=== PATIENT | male | born 1955 | race Caucasian/White ===

== ENCOUNTER → 2023-09-20 13:48 | Outpatient (REF) | payer OTHER, SELFPAY | LOC: HWRAD 13:48 | PROVIDERS: ATTENDING PHYSICIAN Urology; FAMILY PHYSICIAN Family Medicine; REFERRING PHYSICIAN Specialist | DX: C67.9 Malignant neoplasm of bladder, unspecified (principal) | CPT/HCPCS: 74178; Q9967 ==

== ENCOUNTER → 2023-09-24 10:07 | Outpatient (REF) | payer OTHER, SELFPAY | LOC: RAD 10:07 | PROVIDERS: ATTENDING PHYSICIAN Urology; FAMILY PHYSICIAN Family Medicine | DX: C67.9 Malignant neoplasm of bladder, unspecified (principal) | CPT/HCPCS: 78707; A9539 ==

== ENCOUNTER 2023-10-23 20:48 | Inpatient (IN) | payer OTHER, SELFPAY ==
[2023-10-23 15:23] VITALS: BP 119/63
--- NOTE | 2023-10-23 16:20 | ED.GENMED ---
History of Present Illness
General
Chief Complaint: Male Genito-Urinary Symptoms
Source: patient
Exam Limitations: none
Time Seen by Provider: 10/23/23 15:56
Nursing documentation reviewed up to this point in time: agreed with
Travel History
Have you had any contact with someone who has COVID-19?: No
Do you have any symptoms of coronavirus? Fever > 100 degrees, chills, cough, shortness of breath, sore throat, loss of taste or smell, muscle aches, or headache?: No
History of Present Illness
History of Present Illness:
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 Open to the emergency department today with
concerns of right-sided flank pain worsening over the past few days with associated hematuria over the past week and a half or so. Does have a history of kidney stones. Has had multiple procedures for tumors of his ureter. Has been taking Tylenol
at home without relief of symptoms. Denies chest pain shortness of breath fevers.
Review of Systems
Review of Systems
Allergies reviewed?: Yes
All Other Systems: ROS reviewed and negative except as documented in HPI and ROS
Phy Exam
Physical Exam
Physical Exam:
GENERAL: Alert , in no apparent distress
EYE: pupils equal and reactive
NECK: Supple, no significant adenopathy.
ENT: o/p clr, mmm.
CARDIAC: Regular rate and rhythm .
LUNGS: Clear breath sounds bilaterally, no acute respiratory distress, no wheezes/rales/rhonchi
ABDOMEN: Multiple scars to the abdomen but no focal tenderness soft, without focal tenderness, no r/g, no cvat
NEUROLOGICAL: Alert and oriented, no focal neuro deficits
SKIN: Warm and dry, skin intact.
MUSCULOSKELETAL: No edema, well perfused.
PSYCH: Normal and appropriate interaction.
Course
Orders/Labs/Results
Orders:
Orders
10/23/23 16:19
CT Abd/pel Without Iv Or Oral Urgent
Comment:
Reason For Exam: right flank pain hematuria, hx of colectomy, gastr
Ketorolac [Toradol] 15 mg IV NOW STA
10/23/23 16:29
Complete Blood Count/With Diff Urgent
Comprehensive Metabolic Panel Urgent
10/23/23 17:27
Urinalysis Reflex To Culture Urgent
Date Specimen was Collected: 10/23/23
Time Specimen was Collected: 17:25
Urine Microscopic Reflex Cult Urgent
Urine Culture Urgent
SELENA Source: U
Specimen Description:
Date Specimen was Collected: 10/23/23
Time Specimen was Collected: 17:25
10/23/23 19:38
CefTRIAXone [Rocephin] 2,000 mg IV NOW STA
Abnormal Lab Results
10/23/23 10/23/23
16:29 17:27
RBC 3.82 L 10^6/uL
(4.70-6.10)
Hgb 11.8 L g/dL
(13.0-18.0)
Hct 33.9 L %
(39.0-52.0)
Absolute Lymphs (auto) 0.4 L 10^3/uL
(1.2-3.4)
Neutrophils % 87.1 H %
(42.2-75.2)
Lymphocytes % 7.8 L %
(20.5-51.1)
Sodium 133 L mmol/L
(135-145)
BUN 25 H mg/dl
(9-20)
Glucose 150 H mg/dl
(70-99)
Urine Ketones 3+ A
(Negative)
Ur Occult Blood Reflex 4+ A
(Negative)
Urine Nitrite (Reflex) Positive A
(Negative)
Urine Bilirubin 1+ A
(Negative)
Leukocyte Esterase Rfl Trace A
(Negative)
Urine RBC >100 A /HPF
(0-2)
Urine Albumin (Reflex) 3+ A
(Neg - Trace)
10/23/23 16:29
10/23/23 16:29
Vital Signs
Initial and Last Documented VS:
Initial Vital Signs
Temp Pulse Resp BP Pulse Ox
97.6 F 63 18 119/63 99
10/23/23 15:23 10/23/23 15:23 10/23/23 15:23 10/23/23 15:23 10/23/23 15:23
Last Documented Vital Signs
Temp Pulse Resp BP Pulse Ox
97.6 F 63 18 119/63 99
10/23/23 15:23 10/23/23 15:23 10/23/23 15:23 10/23/23 15:23 10/23/23 15:23
MDM/Problems Addressed
MDM/Problems Addressed:
67-year-old male presenting to the emergency department today with concerns of hematuria over the past week and a half or so with associated right-sided flank pain worsening over the past few days. Does follow with Dr. Chai harris of history of
tumors previously on his ureter as well as kidney stones. Upon arrival here vital signs normal patient no obvious distress no reproducible pain plan for CT scan and labs and urine for further assessment. Urine potentially consistent with infection
with nitrites to many red blood cells for microscopy. CT scan is showing obstruction to the right ureter with hydronephrosis no calculus. Case discussed with neurology recommending admission for nephrostomy tube via IR and otherwise recommending
IV antibiotics due to concern for potential infection. Patient stable throughout ER stay
*Critical Care Note
Total Time (30-74mins, 75-104mins- exclusive of procedures): Not Applicable
ED Attending Note
-
Portions of this chart may have been created with voice recognition software.� Occasional wrong word or��sound alike� substitutions may have occurred due to the inherent limitations of voice recognition software.
Discharge Plan
Departure
Patient Disposition: Admit
Date of Disposition: 10/23/23
Time of Disposition: 19:45
Admit to: Med/Surg
Admit to doctor: Matthew
Presentation/result/management discussed w/ accepting MD/DO: Hospitalist
Patient with high blood pressure during this ER visit?: No
Condition: Good
Covid-19: Not Applicable
Discharge Problem:
Hydronephrosis, Ureter, stricture
Prescriptions:
No Action
multivitamin Tablet
1 tab PO DAILY
escitalopram oxalate 10 MG tablet
10 mg PO DAILY
ascorbic acid (vitamin C) 500 MG capsule
500 mg PO DAILY
cyanocobalamin (vitamin B-12) 5,000 MCG capsule
5,000 mcg PO DAILY
Flaxseed Oil
1,000 mg PO DAILY
loperamide 2 mg Tablet
2 mg PO PRN PRN (Reason: GI)
fluticasone propionate [Flonase] 50 mcg/actuation [place],Suspension
1 spray INTRANASAL PRN PRN (Reason: allergies)
ferrous sulfate 325 mg (65 mg iron) Tablet
325 mg PO DAILY
Vitamin D3
1 tab PO DAILY
tamsulosin 0.4 mg Capsule
0.4 mg PO DAILY
Referrals:
Perfecto Rangel DO [Family Provider] -
Interventions
Interventions:
*Risk Screen - Suicide Last Done: 10/23/23 15:23
*General Assessment Last Done: 10/23/23 15:23
*Neglect/Abuse Screening Last Done: 10/23/23 15:23
*ED COVID-19 Vaccine History Last Done: 10/23/23 17:26
ED-Male Genitourinary Assessment Last Done: 10/23/23 17:25
[2023-10-23] MEDS: TORADOL 15 MG IV (16:33)
[2023-10-23 16:39] LABS: % Basophils 0.2 % (0-2); % Lymphocytes 7.8 % (20.5-51.1); % Monocytes 4.9 % (1.7-9.3); % Neutrophils 87.1 % (42.2-75.2); Absolute Lymphocytes 0.4 10^3/uL (1.2-3.4); Absolute Monocytes 0.3 10^3/uL (0.1-0.6); Absolute Neutrophils 4.6 10^3/uL (1.4-6.5); Hematocrit 33.9 % (39.0-52.0); Hemoglobin 11.8 g/dL (13.0-18.0); Mean Corp Hgb Conc. 34.8 g/dL (33.0-37.0); Mean Corpuscular Hgb 30.9 pg (27.0-31.0); Mean Corpuscular Volume 88.7 fL (80.0-94.0); Mean Platelet Volume 9.9 fL (7.4-10.4); Nucleated Red Blood Cells % 0 % (-); Platelet Count 153 10^3/uL (130-400); Red Blood Cell Count 3.82 10^6/uL (4.70-6.10); Red Cell Dist. Width 12.1 % (11.5-14.5); White Blood Cell Count 5.3 10^3/uL (4.8-10.8)
[2023-10-23 16:54] LABS: ALT (SGPT) 18 U/L (0-50); AST (SGOT) 28 U/L (17-59); Albumin 4.1 g/dl (3.5-5.0); Alkaline Phosphatase 87 U/L (38-126); Blood Urea Nitrogen 25 mg/dl (9-20); Calcium 8.9 mg/dl (8.4-10.2); Carbon Dioxide 26 mmol/L (22-30); Chloride 99 mmol/L (98-107); Glucose 150 mg/dl (70-99); Potassium 3.9 mmol/L (3.5-5.1); Sodium 133 mmol/L (135-145); Total Bilirubin 0.5 mg/dl (0.2-1.3); Total Protein 6.3 g/dl (6.3-8.2); eGFR > 60.00
[2023-10-23 17:43] LABS: Urine Albumin 3+ (Neg - Trace); Urine Bilirubin 1+ (Negative); Urine Character Very Cloudy (Clear); Urine Color Red; Urine Glucose Negative (Negative); Urine Ketone 3+ (Negative); Urine Leukocyte Trace (Negative); Urine Nitrite Positive (Negative); Urine Occult Blood 4+ (Negative); Urine Specific Gravity 1.025 (<1.030); Urine Urobilinogen Negative (Neg - 1+)
[2023-10-23 18:09] LABS: Urine Red Blood Cell >100 /HPF (0-2)
--- NOTE | 2023-10-23 19:48 | HPS.HSE ---
Addendum entered and electronically signed by Kody Leal MD 10/23/23 20:58:
Patient seen and examined independently with [employer]. 67-year-old male past medical history of Lebron syndrome with multiple cancers including colon cancer status post colectomy, gastric cancer status post gastrectomy, bladder cancer status post
resection, prostate cancer status post radiation, known right ureteral stricture secondary to tumor/resection, radiation not amenable to stenting presenting with hematuria with clots associated with difficulty passing urine and right-sided flank
pain.
CT scan shows severe right-sided hydroureteronephrosis without any obstructing ureteral calculus. There appears to be increased inflammatory fat stranding about the right kidney.
Hematuria likely secondary to ureteral stricture secondary to prior radiation/malignancy with pyelonephritis. Check blood, urine cultures. Will start CBI. IV fluids. IV ceftriaxone. Urology consulted and recommending IR nephrostomy tube
placement.
Original Note:
Family Physician
-
Family Physician: Perfecto Page
Chief Complaint
-
Right flank pain, hematuria
History of Present Illness
67-year-old male complaining of right-sided flank pain x 1 week with hematuria. He reports his urine started off bright red then has progressed to dark in color with clots long and stringy in appearance starting yesterday. He reports he had
difficulty passing his urine today secondary to clots. He also reports increased right flank pain but denies fever, chills. He has known history of right ureteral stricture secondary to tumor removals, prostate radiation and has been following
with urology. He has an appointment at [facility] with Dr. Woodruff November 14 for evaluation of stenosis of the right ureter as not amenable to any stent. He denies current chest pain, palpitations, shortness breath, cough, nausea, vomit,
diarrhea.
He has PMH Lebron syndrome, colon cancer with hemicolectomy 1990 with post chemo, colectomy 2005, gastric cancer status post gastrectomy 2021 and chemotherapy, Hx renal calculi, bladder stones, bladder tumor removal x 3/bladder cancer, prostate
cancer with radiation and chemo, C. difficile 2021 postgastrectomy , HTN, neuropathy, PVCs, asthma, GERD, Gilman's esophagus, DJD, basal cell carcinoma, anxiety.
Medical History
Past Medical History
Past Medical History: Reports Other
Additional Past Medical History:
HTN
neuropathy,
PVCs
asthma,
GERD/, Gilman's esophagus,
Lebron syndrome
colon cancer with hemicolectomy 1990 with post chemo, colectomy 2005,
gastric cancer status post gastrectomy 2021 and chemotherapy
Hx renal calculi, bladder stones
Bladder cancer s/p bladder tumor removal x 3
prostate cancer with radiation and chemo
C. difficile 2021 post gastrectomy
DJD
basal cell carcinoma
anxiety
Past Surgical History: Reports Other
Additional Past Surgical History:
Hx bladder cancer/bladder tumor removal x 3
Hx prostatectomy 09/14 prostate cancer treated with radiation and chemo
Gastric cancer 2021
Total gastrectomy 2021 secondary to gastric cancer treated with chemo 2021
Colon cancer 1990, 2005
Hemicolectomy 09/14 colon cancer treated with chemo, colectomy 2005
Social History
Tobacco: Non-smoker
Alcohol: Occasional
Drug: None
Personal:
Living: With Family
Employment: Retired
Family History
Family History: Other (Mother Lebron syndrome age 69, all maternal aunts uncles from Lebron syndrome in their 60s, patient's 3 brothers age 62 Lebron syndrome with cancers gastric, renal 1 brother age 76 gastric cancer mets to brain
also with Lebron syndrome, patient's 3 daughters all Lebron syndrome pau)
Allergies / Home Medications
Allergies reflects when Allergies were last updated in [facility].
Home Medications with original date entered in [facility]
Allergy/Medication List:
Allergies
Allergy/AdvReac Type Severity Reaction Status Date / Time
No Known Drug Allergies Allergy NA Verified 08/09/23 06:46
pollen extracts Allergy Runny Verified 08/09/23 06:46
Nose,
Itchy eyes
Home Medications
ascorbic acid (vitamin C) 500 mg capsule 500 mg PO DAILY 03/29/21
cyanocobalamin (vitamin B-12) 5,000 mcg capsule 5,000 mcg PO DAILY 03/29/21
escitalopram oxalate 10 mg tablet 10 mg PO DAILY 03/29/21
flaxseed oil 1,000 mg capsule 1,000 mg PO DAILY 03/29/21
multivitamin 1 tab PO DAILY 03/29/21
loperamide 2 mg tablet 2 mg PO Q4H PRN loose stool 05/09/22
fluticasone propionate 50 mcg/actuation nasal spray,suspension 1 spray intranasal DAILY PRN allergies 01/09/23
cholecalciferol (vitamin D3) 25 mcg (1,000 unit) tablet (Vitamin D3) 25 mcg PO DAILY 07/30/23
tamsulosin 0.4 mg capsule 0.4 mg PO DAILY 07/30/23
calcium carbonate 500 mg calcium (1,250 mg) tablet 500 mg PO DAILY 10/23/23
evening primrose oil 500 mg capsule 500 mg PO DAILY 10/23/23
inulin-sorbitol 2 gram chewable tablet 1 tab PO DAILY 10/23/23
Review of Systems
-
History Source: Patient and Family ()
A 12 point ROS was completed and negative except as noted: Yes
Constitutional: Denies Fever or Chills
EENT: Denies Sore Throat or Runny Nose
Respiratory: Denies Cough or Trouble Breathing
Cardiac: Denies Chest Pain, Diaphoresis or Palpitations
Abdomen/GI: Reports Abdominal Pain (Right-sided); Denies Nausea, Vomiting, Diarrhea, Constipated or Bloody Stools
: Reports Dysuria, Flank Pain (Right), Difficulty Voiding and Other (Hematuria with clots)
Musculoskeletal: Denies Joint Pain, Joint Swelling or Edema
Skin: Denies Itching or Rash
Neurological: Denies Dizzy, Headache or Weakness
Endocrine: Reports No Symptoms
Hematologic/Lymphatic: Reports No Symptoms
Psych: Reports Calm
Physical Exam
Vital Signs
Vital Signs
Temp Pulse Resp BP Pulse Ox
97.6 F 63 18 119/63 99
10/23/23 15:23 10/23/23 15:23 10/23/23 15:23 10/23/23 15:23 10/23/23 15:23
Physical Exam
General: Comfortable and Conversant; No Pain or Fever
HEENT: NormoCephalic, Anicteric, PERRLA, [place] Conjunctivae and No Ptosis
Respiratory: Clear; No Wheezes, Rales or Rhonchi
Cardiac: S1/S2 and Regular Rhythm; No Murmur, Rub, Gallop or Peripheral Edema
Breast: Deferred by me
GI: Soft, Non Distended, Normal Bowel Sounds, Tender (Right lateral flank), No Hepatosplenomegaly and Other (Soft central abdominal hernia present)
Genito-urinary: Costovertebral angle tend (Right-sided)
Musculoskeletal: No Clubbing, No Cyanosis and No Edema
Skin: Warm and Dry; No Rash or Jaundice
Neuro: AO x 3, No Motor Deficits, Nonfocal/grossly intact, Cranial Nerves Intact and No Sensory Deficits; No Slurred Speech, Facial Droop or Tremors
Psych: Calm
Laboratory Results
-
10/23/23 16:29
10/23/23 16:29
Laboratory Results
Total Bilirubin 0.5 mg/dl (0.2-1.3) 10/23/23 16:29
AST 28 U/L (17-59) 10/23/23 16:29
ALT 18 U/L (0-50) 10/23/23 16:29
Alkaline Phosphatase 87 U/L (38-126) 10/23/23 16:29
Impression/Plan
-
Impression/plan:
Admit to MedSurg
#Severe right-sided hydroureteronephrosis likely secondary to stricture vs mass with poss Pyelonephritis
#History chronic ureteral stricture right-sided
#Hx Renal calculi with cystoscopy stone extraction 2022, 2021
#Hx Bladder cancer/bladder tumor removal x 3
#Hx Prostatectomy 2009 2/2 prostate cancer treated with radiation and chemo
-Consult Urology Dr. Junior aware consult IR for nephrostomy tube placement
- UA [employer], blood cultures x 2
-CBI
-IV Rocephin
-cont flomax
-Follow CBC, BMP
CT abdomen pelvis without IV or oral contrast:
1. Severe right-sided hydroureteronephrosis no obstructing calculus findings could be secondary to stricture or an occult mass.
2. Increased inflammatory fat stranding about the right kidney
#Lebron syndrome hx
-Also strong maternal family history Lebron syndrome all age 60s patient's 3 daughters currently in syndrome
#Gastric cancer 2021 small intestine attached to duodenum
-Total gastrectomy 2021 secondary to gastric cancer treated with chemo 2021
#Colon cancer 1990, 2005
-Hemicolectomy 19902 colon cancer treated with chemo, colectomy 2005
#HTN benign
No reported meds
#Asthma�no acute exacerbation
No reported meds
#GERD/Gilman's esophagus
-No current medication
#Anxiety
-Continue Lexapro 10 mg daily
other PMH:
C. difficile 2021 post gastrectomy
DJD
Basal cell carcinoma
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
PVCs
DVT prophylaxis
SCDs
Full code
[2023-10-23] MEDS: ROCEPHIN IV (20:15)
[2023-10-23] MEDS: ROCEPHIN 2000 MG IV (20:21)
[2023-10-23 23:25] VITALS: BP 150/77
[2023-10-24] VITALS (17 sets, daily range): BP systolic 101–151; BP diastolic 59–91; PULSE 64–65; O2SAT 99–100
[2023-10-24] MEDS: TYLENOL 650 MG PO ×2 (00:17→08:34)
[2023-10-24] MEDS: NSS 1000 IV ×2 (00:25→18:40)
[2023-10-24 06:46] LABS: % Basophils 0.2 % (0-2); % Eosinophils 0.7 % (0-6); % Immature Granulocytes 0.5 % (0-0.5); % Lymphocytes 35.1 % (20.5-51.1); % Monocytes 9.8 % (1.7-9.3); % Neutrophils 53.7 % (42.2-75.2); Absolute Lymphocytes 1.6 10^3/uL (1.2-3.4); Absolute Monocytes 0.4 10^3/uL (0.1-0.6); Absolute Neutrophils 2.4 10^3/uL (1.4-6.5); Hematocrit 32.5 % (39.0-52.0); Hemoglobin 11.1 g/dL (13.0-18.0); Mean Corp Hgb Conc. 34.2 g/dL (33.0-37.0); Mean Corpuscular Hgb 29.8 pg (27.0-31.0); Mean Corpuscular Volume 87.1 fL (80.0-94.0); Mean Platelet Volume 9.8 fL (7.4-10.4); Nucleated Red Blood Cells % 0 % (-); Platelet Count 164 10^3/uL (130-400); Red Blood Cell Count 3.73 10^6/uL (4.70-6.10); Red Cell Dist. Width 12.3 % (11.5-14.5); White Blood Cell Count 4.4 10^3/uL (4.8-10.8)
[2023-10-24 07:11] LABS: Blood Urea Nitrogen 20 mg/dl (9-20); Calcium 8.7 mg/dl (8.4-10.2); Carbon Dioxide 28 mmol/L (22-30); Chloride 101 mmol/L (98-107); Glucose 87 mg/dl (70-99); Potassium 3.4 mmol/L (3.5-5.1); Sodium 137 mmol/L (135-145); eGFR > 60.00
[2023-10-24] MEDS: VITAMIN D3 (cholecalciferol) 25 MCG PO (08:20)
[2023-10-24] MEDS: FLOMAX 0.400000000000000022 MG PO (08:20)
[2023-10-24] MEDS: LEXAPRO 10 MG PO (08:20)
[2023-10-24] MEDS: VITAMIN B-12 5000 MCG PO (08:32)
[2023-10-24] MEDS: OSCAL CAL 500 500 MG PO (08:33)
[2023-10-24] MEDS: KCL 260 MEQ IV (10:03)
--- NOTE | 2023-10-24 12:40 | W.PN.HOSP.TC ---
Today's Communication/Plan
-
Monitor vital signs see plan
Follow urine culture
Continue with CBI
Continue with antibiotics
IR for PCN
Urology
Replete K
Assessment / Plan
Assessment / Plan
General: Comfortable and Conversant
HEENT: NormoCephalic, Anicteric
Respiratory: Clear; No Wheezes
Cardiac: S1/S2 and Regular Rhythm
GI: Soft, Non Distended, Normal Bowel Sounds, Tender (Right lateral flank)
Genito-urinary: Costovertebral angle tend (Right-sided)
Musculoskeletal: No Edema
Neuro: AO x 3, No Motor Deficits, Nonfocal/grossly intact
Psych: Calm
Severe right-sided hydroureteronephrosis likely secondary to stricture vs mass � with poss Pyelonephritis
Hematuria secondary to above
#History chronic ureteral stricture right-sided
#Hx Renal calculi with cystoscopy stone extraction 2022, 2021
#Hx Bladder cancer/bladder tumor removal x 3
#Hx Prostatectomy 2009 09/ prostate cancer treated with radiation and chemo
-Consult Urology; consult IR for nephrostomy tube placement
- blood cultures x 2
urine cx pending; cw abx
-CBI
-cont flomax
�� � ��CT abdomen pelvis without IV or oral contrast:
� � � � � � 1.� Severe right-sided hydroureteronephrosis no obstructing calculus findings could be secondary to stricture or an occult mass.
� � � � � � 2.� Increased inflammatory fat stranding about the right kidney
Hypokalemia
Replete
#Lebron syndrome hx
-Also strong maternal family history Lebron syndrome all age 60s patient's 3 daughters currently in syndrome
#Gastric cancer 2021 small intestine attached to duodenum
-Total gastrectomy 2021 secondary to gastric cancer treated with chemo 2021
#Colon cancer 1990, 2005
-Hemicolectomy 1990 2/2 colon cancer treated with chemo, colectomy 2005
#HTN benign
No reported meds
#Asthma�no acute exacerbation
No reported meds
#GERD/Gilman's esophagus
-No current medication
#Anxiety
-Continue Lexapro 10 mg daily
other PMH:
�C. difficile 2021 post gastrectomy
DJD
Basal cell carcinoma
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
PVCs
DVT prophylaxis
SCDs
Full code
I spent a total of 52 minutes with the patient or on the floor. More than 50% of this time involved counseling and coordination of care.
Anticipated Discharge: 24 - 48 hours
Subjective/Interval History
-
Date of Service: October 24, 2023
denies nausea
Objective Data
-
Labs:
Laboratory Results
10/24/23 10/24/23
06:02 07:37
WBC 4.4 L
Hgb 11.1 L
Hct 32.5 L
Plt Count 164
PT Pending
INR Pending
Sodium 137
Potassium 3.4 L
Chloride 101
Carbon Dioxide 28
BUN 20
Creatinine 0.9
Glucose 87
Calcium 8.7
Vital Signs:
Vital Signs
Temp Pulse Resp BP Pulse Ox
98.1 F 63 18 101/64 99
10/24/23 07:00 10/23/23 15:23 10/23/23 15:23 10/24/23 04:00 10/24/23 06:00
I&O
10/23/23 10/24/23 10/25/23
06:59 06:59 06:59
Output Total 800 / 800
Balance -800 / -800
[2023-10-24 14:22] LABS: INR 1.07; PT 13.9 Sec (11.4-14.6)
--- NOTE | 2023-10-24 15:01 | CONS.URO ---
Consultation
-
Date/Time Consultation Performed: 10/24/23 0830
Performing Provider: Peffer
Reason for Consultation: Hydronephrosis, hematuria
Medical History
History of Present Illness
67M well known to our practice and Dr. Paula with history of prostate cancer s/p surgery and salvage radiation
Complicated PMH and surgical history due to Lebron syndrome
History of bladder cancer s/p repeat TURBTs
As a result of prior resections he has a R distal ureteral stricture which is inaccessible cystoscopically
Recently has seen Dr. Woodruff at [place] to begin workup for possible ureteral reconstruction
Over the past several days he has developed worsening gross hematuria, R flank pain
No fevers/chills, no nausea/vomiting
CT in ED showed worsened R hydro with perinephric stranding
UA positive for UTI
Past Medical History
Past Medical History: Other (HTN neuropathy, PVCs asthma, GERD/, Gilman's esophagus, Lebron syndrome colon cancer with hemicolectomy 1990 with post chemo, colectomy 2005, gastric cancer status post gastrectomy 2021 and chemotherapy Hx renal
calculi, bladder stones Bladder cancer s/p bladder tumor removal x 3 prostate cancer)
Past Surgical History: Other (Hx bladder cancer/bladder tumor removal x 3 Hx prostatectomy 20092 prostate cancer treated with radiation and chemo Gastric cancer 2021 Total gastrectomy 2021 secondary to gastric cancer treated with chemo 2021 Colon
cancer 1990, 2005 Hemicolectomy 1990 2/2 colon cancer treated with chemo, colect)
Social History
Tobacco: Non-smoker
Alcohol: Occasional
Drug: None
Family History
Family History: Reviewed & Not Pertinent
Allergies/Home Medications
Allergies
Allergy/AdvReac Type Severity Reaction Status Date / Time
No Known Drug Allergies Allergy NA Verified 08/09/23 06:46
pollen extracts Allergy Runny Verified 08/09/23 06:46
Nose,
Itchy eyes
Home Medications
Medication Instructions Recorded Confirmed Type
ascorbic acid (vitamin C) 500 mg 500 mg PO DAILY 03/29/21 10/23/23 History
capsule
cyanocobalamin (vitamin B-12) 5,000 mcg PO DAILY 03/29/21 10/23/23 History
5,000 mcg capsule
escitalopram oxalate 10 mg tablet 10 mg PO DAILY 03/29/21 10/23/23 History
flaxseed oil 1,000 mg capsule 1,000 mg PO DAILY 03/29/21 10/23/23 History
multivitamin 1 tab PO DAILY 03/29/21 10/23/23 History
loperamide 2 mg tablet 2 mg PO Q4H PRN loose stool 05/09/22 10/23/23 History
fluticasone propionate 50 1 spray intranasal DAILY PRN 01/09/23 10/23/23 History
mcg/actuation nasal allergies
spray,suspension
cholecalciferol (vitamin D3) 25 25 mcg PO DAILY 07/30/23 10/23/23 History
mcg (1,000 unit) tablet (Vitamin
D3)
tamsulosin 0.4 mg capsule 0.4 mg PO DAILY 07/30/23 10/23/23 History
calcium carbonate 500 mg calcium 500 mg PO DAILY 10/23/23 10/23/23 History
(1,250 mg) tablet
evening primrose oil 500 mg capsule 500 mg PO DAILY 10/23/23 10/23/23 History
inulin-sorbitol 2 gram chewable 1 tab PO DAILY 10/23/23 10/23/23 History
tablet
Physical Exam
Vital Signs
Vital Signs
Temp Pulse Resp BP Pulse Ox
98.1 F 63 18 101/64 99
10/24/23 07:00 10/23/23 15:23 10/23/23 15:23 10/24/23 04:00 10/24/23 06:00
Lab / Testing Results
Laboratory Results
10/24/23 06:02
10/24/23 06:02
Physical Exam
General: Well Developed, Well Nourished and No Apparent Distress
GI: Soft
Genito-urinary: Costovertebral Angle Tend and Sanchez Catheter (mild hematuria on CBI)
Skin: Warm and Dry
Neuro: AO x 3
Psych: Calm and Intact Judgement
Assessment / Plan
-
67M with prostate cancer s/p prostatectomy and radiation, bladder cancer s/p repeat TURBT, chronic R distal ureteral stricture
Admitted with R flank pain and hematuria
CT showing worsened R ureteral obstruction and possible developing R pyelonephritis
- IR for R nephrostomy tube placement
- IV abx pending cultures - ceftriaxone
- Hematuria may be from upper tract given patient reports of long stringy clots. Minimal bleeding on slow drip CBI this AM. Continue CBI for now, unlikely to need additional intervention
- After discharge will follow up with Dr. Woodruff at [place] for next steps in consideration of ureteral reconstruction
Data Reviewed
-
CT Scan: Image personally visualized and interpreted
Lab Data: Labs Reviewed
--- NOTE | 2023-10-24 18:27 | TRANSFER ---
Received pt from ED via bed. pt brought up with CBI which is continuous. Pt AAOx3. VSS. assessed and oriented to room. CBI already accounted for in ED with irrigation at 1500 while draining red/ clear urine with clots. Will continue to monitor.
[2023-10-24] MEDS: NSS IV (18:34)
[2023-10-24] MEDS: DILAUDID 0.5 MG IV (19:09)
--- NOTE | 2023-10-24 19:58 | PTCARENOTE ---
Pt complained of nephrostomy bag leaking. Small amount of urine on floor. Small hole on back side of bag assessed, reinforced with tape.
[2023-10-24] MEDS: ROCEPHIN 1000 MG IV (20:24)
[2023-10-24] MEDS: STERILE WATER FOR INJECTION 10 ML IV (20:24)
[2023-10-24] MEDS: DILAUDID 1 MG IV (22:47)
[2023-10-25] VITALS (14 sets, daily range): BP systolic 121–148; BP diastolic 60–78
[2023-10-25] MEDS: DILAUDID 0.5 MG IV ×3 (02:29→14:47)
[2023-10-25] MEDS: ZOFRAN 4 MG IV (02:35)
--- NOTE | 2023-10-25 02:36 | PTCARENOTE ---
New right nephrostomy drainage bag obtained and replaced.
[2023-10-25] MEDS: NSS 1000 IV (06:10)
[2023-10-25 06:30] LABS: ALT (SGPT) 14 U/L (0-50); AST (SGOT) 26 U/L (17-59); Albumin 3.2 g/dl (3.5-5.0); Alkaline Phosphatase 66 U/L (38-126); Blood Urea Nitrogen 14 mg/dl (9-20); Calcium 8.3 mg/dl (8.4-10.2); Carbon Dioxide 28 mmol/L (22-30); Chloride 103 mmol/L (98-107); Estimated Creatinine Clearance > 125 ml/min; Glucose 97 mg/dl (70-99); Potassium 3.7 mmol/L (3.5-5.1); Sodium 137 mmol/L (135-145); Total Bilirubin 0.4 mg/dl (0.2-1.3); Total Protein 5.4 g/dl (6.3-8.2); eGFR > 60.00
[2023-10-25] MEDS: LEXAPRO 10 MG PO (07:30)
[2023-10-25] MEDS: FLOMAX 0.400000000000000022 MG PO (07:30)
[2023-10-25] MEDS: VITAMIN D3 (cholecalciferol) 25 MCG PO (07:30)
[2023-10-25] MEDS: VITAMIN B-12 5000 MCG PO (07:30)
[2023-10-25] MEDS: OSCAL CAL 500 500 MG PO (07:30)
[2023-10-25 07:53] LABS: % Basophils 0.2 % (0-2); % Eosinophils 0.2 % (0-6); % Immature Granulocytes 0.2 % (0-0.5); % Lymphocytes 30.3 % (20.5-51.1); % Monocytes 9.2 % (1.7-9.3); % Neutrophils 59.9 % (42.2-75.2); Absolute Lymphocytes 1.3 10^3/uL (1.2-3.4); Absolute Monocytes 0.4 10^3/uL (0.1-0.6); Absolute Neutrophils 2.6 10^3/uL (1.4-6.5); Hematocrit 30.5 % (39.0-52.0); Hemoglobin 10.5 g/dL (13.0-18.0); Mean Corp Hgb Conc. 34.4 g/dL (33.0-37.0); Mean Corpuscular Hgb 30.5 pg (27.0-31.0); Mean Corpuscular Volume 88.7 fL (80.0-94.0); Mean Platelet Volume 9.8 fL (7.4-10.4); Nucleated Red Blood Cells % 0 % (-); Platelet Count 135 10^3/uL (130-400); Red Blood Cell Count 3.44 10^6/uL (4.70-6.10); Red Cell Dist. Width 12.5 % (11.5-14.5); White Blood Cell Count 4.3 10^3/uL (4.8-10.8)
--- NOTE | 2023-10-25 07:57 | W.PN.URO.CBU ---
Today's Communication / Plan
-
OR today
Assessment / Plan
-
hx of multiple cancers- colon/stomach/bladder and prostate
hydronephrosis due to suspected scar from previous tumor resections- now s/p perc placement 10/23
continued hematuria- ? source- tumor/xrt-
reviewed findings and options with patient
he is scheduled to f/u at [facility] to discuss options for reconstruction- resection
due to ongoing bleeding have rec OR cysto today with attempt at dilation and bx/fulguration
risks, benefits, alternatives and disabilities reviewed
posted for this afternoon
Diagnosis
-
Date of Service: October 25, 2023
-
Patient Diagnosis:
hematuria
hydronephrosis
Subjective
-
pt had perc placed- draining- urine not grossly bloody
still with moderate hematuria on cbi- required hand irrigation last night- due to anastomotic stx- only [address]
Objective
-
Vital Signs
Temp Pulse Resp BP Pulse Ox
97.4 F 64 18 128/71 96
10/25/23 07:00 10/25/23 07:00 10/25/23 07:00 10/25/23 07:00 10/25/23 07:00
Intake and Output
10/24/23 10/25/23 10/26/23
06:59 06:59 06:59
Intake Total 960 / 960
Output Total 800 / 800 3550 / 3550
Balance -800 / -800 -2590 / -2590
Intake:
IV fluids (Total) 960 / 960
Output:
Urinary Drain Output (Total) 550 / 550
Right Nephrostomy 550 / 550
True Urine Output from CBI 800 / 800 3000 / 3000
True urine output from hand 0 / 0
irrigation
Laboratory Results
10/25/23 05:51
Review of Systems
-
Constitutional: Fatigue
Respiratory: No Symptoms
Cardiac: No Symptoms
Abdomen/GI: No Symptoms
Physical Exam
-
General - no acute distress
Abdomen - soft, non-tender
Genitalia - normal- [address]- urine light parham on mod drip cbi
Skin - warm & dry with no rash
Neuro - AOx3, no motor deficits
Extremities - no clubbing, no cyanosis, no edema
[2023-10-25] MEDS: KCL 1010 MEQ IV (08:45)
--- NOTE | 2023-10-25 11:15 | W.PN.HOSP.TC ---
Today's Communication/Plan
-
Monitor vital signs and see plan
Still with persistent hematuria, plan for cystoscopy today
Monitor hemoglobin
Follow urine culture
Continue with abx
Assessment / Plan
Assessment / Plan
General: Comfortable and Conversant
HEENT: NormoCephalic, Anicteric
Respiratory: Clear; No Wheezes
Cardiac: S1/S2 and Regular Rhythm
GI: Soft, Non Distended, Normal Bowel Sounds
Genito-urinary: coleman,CBI,right PCN
Musculoskeletal: No Edema
Neuro: AO x 3, No Motor Deficits, Nonfocal/grossly intact
Psych: Calm
Severe right-sided hydroureteronephrosis likely secondary to stricture vs mass � with poss Pyelonephritis
Hematuria secondary to above
#History chronic ureteral stricture right-sided
#Hx Renal calculi with cystoscopy stone extraction 2022, 2021
#Hx Bladder cancer/bladder tumor removal x 3
#Hx Prostatectomy 09/14 prostate cancer treated with radiation and chemo
-Urology following; running plan for cystoscopy 10/24 due to persistent hematuria; status post IR right PCN 10/23
- blood cultures NGTD
urine cx pending; cw abx
-CBI
-cont flomax
�� � ��CT abdomen pelvis without IV or oral contrast:
� � � � � � 1.� Severe right-sided hydroureteronephrosis no obstructing calculus findings could be secondary to stricture or an occult mass.
� � � � � � 2.� Increased inflammatory fat stranding about the right kidney
Hypokalemia
improved
Right mild anemia, suspect secondary to acute blood loss anemia from hematuria
Monitor
#Lebron syndrome hx
-Also strong maternal family history Lebron syndrome all age 60s patient's 3 daughters currently in syndrome
#Gastric cancer 2021 small intestine attached to duodenum
-Total gastrectomy 2021 secondary to gastric cancer treated with chemo 2021
#Colon cancer 1990, 2005
-Hemicolectomy 1990 2/2 colon cancer treated with chemo, colectomy 2005
#HTN benign
No reported meds
#Asthma�no acute exacerbation
No reported meds
#GERD/Gilman's esophagus
-No current medication
#Anxiety
-Continue Lexapro 10 mg daily
other PMH:
C. difficile 2021 post gastrectomy
DJD
Basal cell carcinoma
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
PVCs
DVT prophylaxis
SCDs
Full code
I spent a total of 53 minutes with the patient or on the floor. More than 50% of this time involved counseling and coordination of care.
Anticipated Discharge: 24 - 48 hours
Subjective/Interval History
-
Date of Service: October 25, 2023
denies pain
Objective Data
-
Labs:
Laboratory Results
10/25/23 10/25/23
05:51 07:36
WBC Cancelled 4.3 L
Hgb Cancelled 10.5 L
Hct Cancelled 30.5 L
Plt Count Cancelled 135
Sodium 137
Potassium 3.7
Chloride 103
Carbon Dioxide 28
BUN 14
Creatinine 0.6 L
Glucose 97
Calcium 8.3 L
Total Bilirubin 0.4
AST 26
ALT 14
Alkaline Phosphatase 66
Vital Signs:
Vital Signs
Temp Pulse Resp BP Pulse Ox
97.4 F 64 18 128/71 96
10/25/23 07:00 10/25/23 07:00 10/25/23 07:00 10/25/23 07:00 10/25/23 07:00
I&O
10/24/23 10/25/23 10/26/23
06:59 06:59 06:59
Intake Total 960 / 960
Output Total 800 / 800 3550 / 3550
Balance -800 / -800 -2590 / -2590
--- NOTE | 2023-10-25 14:15 | W.IMMPOSTOP ---
Surgical Immed Post Op Note
-
Primary Surgeon:
ambreen
Assisting Surgeon:
Pre-op Diagnosis:
hematuria
Post-op Diagnosis:
hematuria secondary to xrt
Procedure Performed:
cysto/clot evac and fulguration
Anesthesia Type:
gen
Specimen / Cultures:
none
Estimated Blood Loss:
50cc of old clot
Complications:
none
Operative Findings:
moderate amount of old clot in bladder
no tumor
mild xrt bleeding at 12 oclock position on bladder neck- fulgurated
urine clear at end of case
--- NOTE | 2023-10-25 15:29 | SUR.PHASEI ---
vss, medicated x1 for penis and flank pain with relief. CBI outflow clear, nephrostomy tube kelly. Dr Paula visits at bedside - pt on strict bedrest. aware of same. discharge to [facility] with hand off at bedside. at bedside.
--- NOTE | 2023-10-25 16:11 | CM ---
Chart reviewed. Spoke with pt at bedside
pt lives with his in a 2 story home
Independent, driving
Denies DME, past HH and snf
PCP Dr Perfecto Rangel
Pharm - [facility]
Will have ride home at d/c
Anticipate home - needs tbd
[2023-10-25] MEDS: NSS with KCL 20 MEQ 1000 IV (19:43)
[2023-10-25] MEDS: STERILE WATER FOR INJECTION 10 ML IV (19:45)
[2023-10-25] MEDS: FLUSH (NSS) 1 FLUSH IV (19:46)
[2023-10-25] MEDS: ROCEPHIN 1000 MG IV (19:46)
[2023-10-25] MEDS: TYLENOL 650 MG PO (23:28)
[2023-10-26] MEDS: NSS with KCL 20 MEQ 1000 IV (05:03)
[2023-10-26 06:11] LABS: % Immature Granulocytes 0.3 % (0-0.5); % Lymphocytes 27.4 % (20.5-51.1); % Monocytes 7.8 % (1.7-9.3); % Neutrophils 64.5 % (42.2-75.2); Absolute Lymphocytes 1.1 10^3/uL (1.2-3.4); Absolute Monocytes 0.3 10^3/uL (0.1-0.6); Absolute Neutrophils 2.5 10^3/uL (1.4-6.5); Hematocrit 30.5 % (39.0-52.0); Hemoglobin 10.7 g/dL (13.0-18.0); Mean Corp Hgb Conc. 35.1 g/dL (33.0-37.0); Mean Corpuscular Hgb 30.8 pg (27.0-31.0); Mean Corpuscular Volume 87.9 fL (80.0-94.0); Mean Platelet Volume 9.8 fL (7.4-10.4); Nucleated Red Blood Cells % 0 % (-); Platelet Count 150 10^3/uL (130-400); Red Blood Cell Count 3.47 10^6/uL (4.70-6.10); Red Cell Dist. Width 12.2 % (11.5-14.5); White Blood Cell Count 3.8 10^3/uL (4.8-10.8)
[2023-10-26 06:38] LABS: ALT (SGPT) 16 U/L (0-50); AST (SGOT) 31 U/L (17-59); Albumin 3.2 g/dl (3.5-5.0); Alkaline Phosphatase 73 U/L (38-126); Blood Urea Nitrogen 9 mg/dl (9-20); Calcium 8.3 mg/dl (8.4-10.2); Carbon Dioxide 26 mmol/L (22-30); Chloride 107 mmol/L (98-107); Estimated Creatinine Clearance > 125 ml/min; Glucose 109 mg/dl (70-99); Potassium 3.8 mmol/L (3.5-5.1); Sodium 136 mmol/L (135-145); Total Bilirubin 0.4 mg/dl (0.2-1.3); Total Protein 5.4 g/dl (6.3-8.2); eGFR > 60.00
--- NOTE | 2023-10-26 07:25 | W.PN.URO.CBU ---
Today's Communication / Plan
-
trial of void and discharge if emptying without hematuria
Assessment / Plan
-
hx of multiple cancers- colon/stomach/bladder and prostate
hydronephrosis due to suspected scar from previous tumor resections- now s/p perc placement 10/23
hematuria secondary to xrt change at bladder neck- now s/p cysto and fulguration
urine clear
coleman removed for voiding trial
hgb/cr and wbc stable
cx's negative
if pt voids- ok to discharge today with right perc
would cover with antibx for 3 days (writtent)
has f/u sunday at [facility]
Diagnosis
-
Date of Service: October 26, 2023
-
Patient Diagnosis:
hematuria
hydronephrosis
s/p cysto/clot evac and fulguration 10/24
Subjective
-
pt feels good
urien clear with cbi off
all cx's negative
wbc and hgb and cr stable
Objective
-
Vital Signs
Temp Pulse Resp BP Pulse Ox
97.9 F 67 17 129/60 96
10/25/23 23:29 10/25/23 23:29 10/25/23 23:29 10/25/23 23:29 10/25/23 23:29
Intake and Output
10/25/23 10/26/23 10/27/23
06:59 06:59 06:59
Intake Total 960 / 960 1540 / 1540
Output Total 3550 / 3550 6250 / 6250
Balance -2590 / -2590 -4710 / -4710
Intake:
Oral fluids 240 / 240
IV fluids (Total) 960 / 960 1300 / 1300
normosol 100 / 100
Output:
Urinary Drain Output (Total) 550 / 550 1300 / 1300
Right Nephrostomy 550 / 550 1300 / 1300
Urine, Coleman 3850 / 3850
True Urine Output from CBI 3000 / 3000 1100 / 1100
True urine output from hand 0 / 0
irrigation
Laboratory Results
10/26/23 05:18
10/26/23 05:18
Review of Systems
-
Constitutional: No Symptoms
Respiratory: No Symptoms
Cardiac: No Symptoms
Abdomen/GI: No Symptoms
Physical Exam
-
General - no acute distress
Abdomen - soft, non-tender,
Genitalia - normal- coleman removed
[2023-10-26] MEDS: FLOMAX 0.400000000000000022 MG PO (07:34)
[2023-10-26] MEDS: OSCAL CAL 500 500 MG PO (07:34)
[2023-10-26] MEDS: VITAMIN D3 (cholecalciferol) 25 MCG PO (07:35)
[2023-10-26] MEDS: VITAMIN B-12 5000 MCG PO (07:35)
[2023-10-26] MEDS: LEXAPRO 10 MG PO (07:35)
[2023-10-26 07:45] VITALS: BP 154/76
[2023-10-26] MEDS: TYLENOL 650 MG PO (08:57)
--- NOTE | 2023-10-26 10:07 | W.PN.HOSP.TC ---
Addendum entered and electronically signed by Avila Amato MD 10/26/23 13:15:
Hematuria resolved. Will discharge patient home as recommended by urology
Time of discharge 37 minutes
Original Note:
Today's Communication/Plan
-
Monitor vitals
See plan
Continue antibiotics
Coleman DC'd, monitor for hematuria
Assessment / Plan
Assessment / Plan
General: Comfortable and Conversant
HEENT: NormoCephalic, Anicteric
Respiratory: Clear; No Wheezes
Cardiac: S1/S2 and Regular Rhythm
GI: Soft, Non Distended, Normal Bowel Sounds
Genito-urinary: coleman,CBI,right PCN
Musculoskeletal: No Edema
Neuro: AO x 3, No Motor Deficits, Nonfocal/grossly intact
Psych: Calm
Severe right-sided hydroureteronephrosis likely secondary to stricture vs mass � with poss Pyelonephritis
Hematuria secondary to above
#History chronic ureteral stricture right-sided
#Hx Renal calculi with cystoscopy stone extraction 2022, 2021
#Hx Bladder cancer/bladder tumor removal x 3
#Hx Prostatectomy 09/14 prostate cancer treated with radiation and chemo
-Urology following; running plan for cystoscopy 10/24 due to persistent hematuria; status post IR right PCN 10/23
- blood cultures NGTD
urine cx now growth; urology rec to treat for 3 days
off CBI; status post cystoscopy with blood clot likely secondary to XRT injury. Was on Coleman, DC'd 10/25. Per urology will monitor urine output and if nonbloody then could likely be discharged
-cont flomax
�� � ��CT abdomen pelvis without IV or oral contrast:
� � � � � � 1.� Severe right-sided hydroureteronephrosis no obstructing calculus findings could be secondary to stricture or an occult mass.
� � � � � � 2.� Increased inflammatory fat stranding about the right kidney
Hypokalemia
improved
Right mild anemia, suspect secondary to acute blood loss anemia from hematuria
Monitor
#Lebron syndrome hx
-Also strong maternal family history Lebron syndrome all age 60s patient's 3 daughters currently in syndrome
#Gastric cancer 2021 small intestine attached to duodenum
-Total gastrectomy 2021 secondary to gastric cancer treated with chemo 2021
#Colon cancer 1990, 2005
-Hemicolectomy 1990 2 colon cancer treated with chemo, colectomy 2005
#HTN benign
No reported meds
#Asthma�no acute exacerbation
No reported meds
#GERD/Gilman's esophagus
-No current medication
#Anxiety
-Continue Lexapro 10 mg daily
other PMH:
C. difficile 2021 post gastrectomy
DJD
Basal cell carcinoma
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
PVCs
DVT prophylaxis
SCDs
Full code
Anticipated Discharge: Within 24 hours
Subjective/Interval History
-
Date of Service: October 26, 2023
denies pain
Objective Data
-
Labs:
Laboratory Results
10/26/23
05:18
WBC 3.8 L
Hgb 10.7 L
Hct 30.5 L
Plt Count 150
Sodium 136
Potassium 3.8
Chloride 107
Carbon Dioxide 26
BUN 9
Creatinine 0.6 L
Glucose 109 H
Calcium 8.3 L
Total Bilirubin 0.4
AST 31
ALT 16
Alkaline Phosphatase 73
Vital Signs:
Vital Signs
Temp Pulse Resp BP Pulse Ox
97.7 F 63 17 154/76 99
10/26/23 07:45 10/26/23 07:45 10/26/23 07:45 10/26/23 07:45 10/26/23 07:45
I&O
10/25/23 10/26/23 10/27/23
06:59 06:59 06:59
Intake Total 960 / 960 1540 / 1540
Output Total 3550 / 3550 6250 / 6250 100 / 100
Balance -2590 / -2590 -4710 / -4710 -100 / -100
--- NOTE | 2023-10-26 10:20 | PTOTSP ---
Reviewed chart and noted pt went to OR yesterday for cysto/clot evac and fulguration under general anesthesia. Will need new order for PT when stable to resume activity, if his mobility is a concern. He was ambulatory prior to the surgery.
--- NOTE | 2023-10-26 12:00 | CM ---
Spoke with pt at bedside
Pt may be d/c'ed today
Offered Home services - declined
Reports his will transport home at d/c
Plan - home no needs
--- NOTE | 2023-10-26 13:18 | W.DCSUMMARY ---
Discharge Summary
Discharge Data
Date of Admission: 10/23/23
Date of Discharge: 10/26/23
-
Pending Results: No
Hospital Course
67-year-old male with past medical history of Lebron syndrome, gastric cancer, colon cancer, hypertension, asthma, GERD, Gilman's esophagus, anxiety, C. difficile, basal cell carcinoma, neuropathy, bladder cancer, prostatectomy, renal calculi status
post cystoscopy with stone extraction, chronic ureteral stricture came to the hospital with severe right-sided hydro and ureteral nephrosis which was likely thought was secondary to stricture versus mass. Patient urine culture did not grow any
bacteria. Initially patient was treated with IV antibiotic which was later transitioned to oral per urology recommendation on discharge. Patient initially required continuous bladder irrigation. Patient was taken for right nephrostomy tube by
interventional radiology. Patient continued to had hematuria so he was taken for cystoscopy by urology. Urology performed cauterization of the bleeding area which was likely thought was secondary to radiation. Sanchez catheter was taken out prior
to the discharge. Patient was able to void without any hematuria prior to discharge. Since his symptoms improved, he was then discharged home with instructions to follow-up with all his physicians outpatient.
Discharge Plan
-
Patient Disposition: Home (Routine Discharge)
Discharge Diagnosis/Procedures: Blocked right kidney s/p nephrostomy tube placed
Hematuria status post cystoscopy and cauterization of the bleeding site
Condition: Fair
Diet: No restrictions
Activity: No strenuous activity
Driving Restrictions: As prior to admission
Bathing Restrictions: OK to Shower
Wound Care: be careful of right nephrostomy tube
may shower- removed drain sponge before showering- then when out of shower put small glob of neosporin ointment on site and replace drain sponge and tape
Referrals:
Perfecto Rangel DO [Family Provider] - in less than 1 week
Louie Paula Jr., MD [Active] - (as needed depending on [facility] appointment and plan)
Prescriptions:
New
cefdinir 300 mg capsule
300 mg PO BID Qty: 6 0RF
Continued
multivitamin Tablet
1 tab PO DAILY
flaxseed oil 1,000 mg Capsule
1,000 mg PO DAILY
escitalopram oxalate 10 MG tablet
10 mg PO DAILY
ascorbic acid (vitamin C) 500 MG capsule
500 mg PO DAILY
cyanocobalamin (vitamin B-12) 5,000 MCG capsule
5,000 mcg PO DAILY
loperamide 2 mg Tablet
2 mg PO Q4H PRN (Reason: loose stool)
fluticasone propionate 50 mcg/actuation [place],Suspension
1 spray INTRANASAL DAILY PRN (Reason: allergies)
cholecalciferol (vitamin D3) [Vitamin D3] 25 mcg (1,000 unit) Tablet
25 mcg PO DAILY
tamsulosin 0.4 mg Capsule
0.4 mg PO DAILY
evening primrose oil 500 mg Capsule
500 mg PO DAILY
calcium carbonate 500 mg calcium (1,250 mg) Tablet
500 mg PO DAILY
inulin-sorbitol 2 gram Tablet,Chewable
1 tab PO DAILY
Discharge Orders:
Discharge Patient (As Directed); Ordered 10/26/23
Ordered By: Avila Amato
Discharge Date and Time
Discharge Date/Time: 10/26/23 15:12
== END 2023-10-26 15:12 | disposition home or self-care (01) | DRG 669 ==
LOC: 3 WEST ACU 20:48
PROVIDERS: Clinical Nurse Specialist Family Health; Physician Assistant; Radiology Vascular & Interventional Radiology; Specialist; ADMITTING PHYSICIAN Hospitalist; ATTENDING PHYSICIAN Internal Medicine; CONSULT PHYSICIAN Urology; EMERGENCY PHYSICIAN Emergency Medicine; FAMILY PHYSICIAN Family Medicine
PROC: 0T9330Z Drainage of Right Kidney Pelvis with Drainage Device, Percutaneous Approach (ICD-10-PCS; 2023-10-24)
PROC: 0TCB8ZZ Extirpation of Matter from Bladder, Via Natural or Artificial Opening Endoscopic (ICD-10-PCS; 2023-10-25)
PROC: 0T5B8ZZ Destruction of Bladder, Via Natural or Artificial Opening Endoscopic (ICD-10-PCS; 2023-10-25)
DX: N30.41 Irradiation cystitis with hematuria (principal); N12 Tubulo-interstitial nephritis, not specified as acute or chronic; Y84.2 Radiological procedure and radiotherapy as the cause of abnormal reaction of the patient, or of later complication, without mention of misadventure at the time of the procedure; R31.9 Hematuria, unspecified; I10 Essential (primary) hypertension; Z15.09 Genetic susceptibility to other malignant neoplasm; Z85.028 Personal history of other malignant neoplasm of stomach; Z85.038 Personal history of other malignant neoplasm of large intestine; Z92.21 Personal history of antineoplastic chemotherapy
CPT/HCPCS: 50432; 74176; 80048; 80053; 81003; 81015; 85025; 85610; 87040; 87086; 96374; 96375; 97166; 99152; 99153; 99285; C1729; C1769

== ENCOUNTER 2024-01-02 06:13 | Day surgery (SDC) | payer OTHER, SELFPAY ==
[2024-01-02 07:00] VITALS: BMI 19.5
[2024-01-02 07:05] VITALS: BP 155/90
[2024-01-02 07:11] VITALS: BMI 19.5
[2024-01-02 09:46] VITALS: BP 123/67
[2024-01-02 09:50] VITALS: BP 123/67
[2024-01-02 10:01] VITALS: BP 140/80
[2024-01-02 10:15] VITALS: BP 146/90
== END 2024-01-02 10:38 | disposition home or self-care (01) ==
LOC: GI 06:13
PROVIDERS: ATTENDING PHYSICIAN Internal Medicine Gastroenterology
DX: K64.0 First degree hemorrhoids (principal); C16.9 Malignant neoplasm of stomach, unspecified; Z85.038 Personal history of other malignant neoplasm of large intestine; Z15.09 Genetic susceptibility to other malignant neoplasm; Z98.0 Intestinal bypass and anastomosis status; Z90.49 Acquired absence of other specified parts of digestive tract
CPT/HCPCS: 45330; 43235

== ENCOUNTER → 2024-04-10 10:15 | Outpatient (REF) | payer OTHER, SELFPAY | LOC: RAD 10:15 | PROVIDERS: ATTENDING PHYSICIAN Urology | DX: C67.9 Malignant neoplasm of bladder, unspecified (principal); N13.30 Unspecified hydronephrosis | CPT/HCPCS: 78707; A9539 ==